=== PATIENT | male | born 1955 | race Caucasian/White ===

== ENCOUNTER 2016-09-09 12:57 | Inpatient (IN) | payer OTHER ==
[2016-09-09] VITALS (7 sets, daily range): BP systolic 130–153; BP diastolic 81–91
[~2016-09-09] VITALS: Ht 180.3 cm; Wt 61.3 kg
[~2016-09-09 12:57] MED LIST: AMOXICILLIN500 MG PO; MOTRIN800 MG PO
[2016-09-09 13:41] LABS: BILIRUBIN NEGATIVE (NEGATIVE); BLOOD NEGATIVE (NEGATIVE); CLARITY CLEAR (CLEAR); COLOR YELLOW (YELLOW); GLUCOSE NEGATIVE (NEGATIVE); KETONE TRACE (NEGATIVE); LEUKO ESTERASE NEGATIVE (NEGATIVE); NITRITE NEGATIVE (NEGATIVE); PROTEIN TRACE (NEGATIVE)
[2016-09-09 13:41] LABS: BASO % 0.4 % (0.0-1.0); EOS # 0.1 10*3/uL (0.0-0.4); EOS % 0.6 % (1.0-4.0); HEMATOCRIT 46.4 % (42.0-52.0); HEMOGLOBIN 15.6 g/dl (14.0-18.0); IG # 0.1 10*3/uL (0.0-0.1); LYMPH # 1.8 10*3/uL (1.3-4.4); MEAN CELL VOLUME 101.5 fl (80.0-94.0); MEAN CORPUSCULAR HGB 34.1 pg (27.0-31.0); MEAN CORPUSCULAR HGB CONC 33.6 g/dl (33.0-37.0); MEAN PLATELET VOLUME 9.6 fl (9.6-12.3); MONO % 11.7 % (3.0-9.0); NEUT # 5.3 10*3/uL (2.3-7.9); NEUT % 64.1 % (47.0-73.0); PLATELET COUNT AUTOMATED 263 10*3/uL (130-400); RED BLOOD COUNT 4.57 10*6/uL (4.50-5.90); RED CELL DISTRI WIDTH 12.2 % (0-14.5); WHITE BLOOD COUNT 8.3 10*3/uL (4.8-10.8)
[2016-09-09 13:51] LABS: PROTHROMBIN TIME 10.1 SECONDS (9.0-12.4)
[2016-09-09 13:53] LABS: MUCOUS TRACE; URINE REFLEX COMMENT NO (NO)
[2016-09-09 13:56] LABS: ALBUMIN 4.3 gm/dl (3.1-4.5); ALKALINE PHOSPHATASE 77 U/L (45-117); BUN 11 mg/dl (7-24); CARBON DIOXIDE 27 mmol/L (21-32); CHLORIDE 100 mmol/L (98-107); CKMB 0.9 ng/ml (0.5-3.6); CPK 64 U/L (39-308); EST GLOM FILT AFRICAN AMERICAN > 60 ml/min; GLUCOSE 113 mg/dL (65-99); MAGNESIUM 2.1 mg/dL (1.5-2.1); POTASSIUM 4.4 mmol/L (3.5-5.1); SGOT/AST 33 IU/L (3-35); SGPT/ALT 46 U/L (12-78); SODIUM 138 mmol/L (136-145); TOTAL PROTEIN 8.2 gm/dL (6.4-8.2)
[2016-09-09 13:57] LABS: C-REACTIVE PROTEIN < 0.29 MG/DL (0-0.3); TROPONIN I < 0.015 ng/ml (<0.045)
[2016-09-09 15:37] LABS: LA>2 REFLEX 2 HR DRAW NOW
[2016-09-09 15:48] LABS: FOLIC ACID 19.54 ng/mL (>5.38)
[2016-09-10] VITALS: BP 143/79
[2016-09-10 06:54] LABS: BASO % 0.4 % (0.0-1.0); EOS # 0.1 10*3/uL (0.0-0.4); EOS % 2.2 % (1.0-4.0); HEMATOCRIT 42.9 % (42.0-52.0); HEMOGLOBIN 14.5 g/dl (14.0-18.0); IG # 0.1 10*3/uL (0.0-0.1); LYMPH # 1.1 10*3/uL (1.3-4.4); LYMPH % 21.2 % (27.0-41.0); MEAN CELL VOLUME 103.4 fl (80.0-94.0); MEAN CORPUSCULAR HGB 34.9 pg (27.0-31.0); MEAN CORPUSCULAR HGB CONC 33.8 g/dl (33.0-37.0); MEAN PLATELET VOLUME 9.6 fl (9.6-12.3); MONO # 0.5 10*3/uL (0.1-1.0); MONO % 10.6 % (3.0-9.0); NEUT # 3.2 10*3/uL (2.3-7.9); NEUT % 64.6 % (47.0-73.0); PLATELET COUNT AUTOMATED 221 10*3/uL (130-400); RED BLOOD COUNT 4.15 10*6/uL (4.50-5.90); RED CELL DISTRI WIDTH 12.1 % (0-14.5)
[2016-09-10 07:01] LABS: HEMOGLOBIN A1c 5.2 % (4.8-5.6)
[2016-09-10 07:13] LABS: PROTHROMBIN TIME 10.5 SECONDS (9.0-12.4)
[2016-09-10 07:23] LABS: VITAMIN D, 25-HYDROXY 6.7 ng/mL (30-100)
[2016-09-10 07:24] LABS: FOLIC ACID 19.19 ng/mL (>5.38)
[2016-09-10 07:48] LABS: ALBUMIN 3.6 gm/dl (3.1-4.5); ALKALINE PHOSPHATASE 65 U/L (45-117); BUN 11 mg/dl (7-24); CARBON DIOXIDE 26 mmol/L (21-32); CHLORIDE 104 mmol/L (98-107); CHOLESTEROL 139 mg/dL (<200); EST GLOM FILT AFRICAN AMERICAN > 60 ml/min; GLUCOSE 98 mg/dL (65-99); HDL CHOLESTEROL 67 mg/dl (40-60); LDL CHOLESTEROL 50 mg/dL (9-159); MAGNESIUM 2.2 mg/dL (1.5-2.1); PHOSPHOROUS 2.8 mg/dL (2.5-4.9); POTASSIUM 3.8 mmol/L (3.5-5.1); SGOT/AST 37 IU/L (3-35); SGPT/ALT 45 U/L (12-78); SODIUM 138 mmol/L (136-145); THYROID STIM HORMONE (HS) 0.382 uIU/ml (0.358-4.75); TOTAL PROTEIN 6.7 gm/dL (6.4-8.2); TRIGLYCERIDES 111 mg/dl (<150); VLDL CHOLESTEROL 22 mg/dL (6-40)
[2016-09-10 08:00] VITALS: BP 136/94
[2016-09-10 12:00] VITALS: BP 126/69
[2016-09-10 16:00] VITALS: BP 128/55
[2016-09-10 20:00] VITALS: BP 137/79
[2016-09-11] VITALS: BP 137/69
[2016-09-11 08:00] VITALS: BP 132/79
[2016-09-11] MEDS ORDERED: Oscal,Oyster S500 MG PO (09:16)
[2016-09-11] MEDS ORDERED: B12,B-12,B 12500 MC1 PO (09:16)
[2016-09-11] MEDS ORDERED: VITAMIN D50000 I3 PO (09:16)
== END 2016-09-11 10:39 | disposition home or self-care (01) | DRG 640 ==
LOC: ED 12:57 → 5E 18:19 → EDHOLD 18:19 → 5E 18:49
PROVIDERS: Emergency Medicine; Student in an Organized Health Care Education/Training Program
DX: E86.0 Dehydration (principal); G93.41 Metabolic encephalopathy; E87.2 Acidosis; E44.1 Mild protein-calorie malnutrition; F10.232 Alcohol dependence with withdrawal with perceptual disturbance; Z68.1 Body mass index [BMI] 19.9 or less, adult; M54.9 Dorsalgia, unspecified; W18.30XA Fall on same level, unspecified, initial encounter; G89.29 Other chronic pain; E53.8 Deficiency of other specified B group vitamins; R26.9 Unspecified abnormalities of gait and mobility; R29.6 Repeated falls; R03.0 Elevated blood-pressure reading, without diagnosis of hypertension; F12.10 Cannabis abuse, uncomplicated; E55.9 Vitamin D deficiency, unspecified; Z87.891 Personal history of nicotine dependence; Y93.89 Activity, other specified; Y92.89 Other specified places as the place of occurrence of the external cause; Y99.8 Other external cause status; Z88.6 Allergy status to analgesic agent